=== PATIENT | male | born 1970 | race Caucasian/White ===

== ENCOUNTER 2018-06-29 09:33 | Emergency (ER) | payer SELFPAY ==
[2018-06-29 09:44] VITALS: BP 131/90
[2018-06-29 09:54] LABS: BILIRUBIN,URINE NEGATIVE (NEGATIVE); GLUCOSE, URINE (UA) NEGATIVE (NEGATIVE); KETONES,URINE (UA) TRACE mg/dL (NEGATIVE); LEUKOCYTE ESTERASE, URINE NEGATIVE (NEGATIVE); NITRITE,URINE NEGATIVE (NEGATIVE); OCCULT BLOOD,URINE LARGE (NEGATIVE); PH,URINE 5.5 PH (5.0-7.5); PROTEIN,URINE NEGATIVE (NEGATIVE); UROBILINOGEN,URINE 0.2 (NORMAL) E.U./dL (NORMAL)
[2018-06-29 09:57] LABS: CLARITY,URINE CLEAR (CLEAR)
[2018-06-29 10:20] LABS: BACTERIA,URINE Few /HPF (None Seen); MUCUS,URINE Few Strands; RBC,URINE TNTC /HPF (0-5); SQUAMOUS EPITHELIAL CELL,UR NONE SEEN (<= Few)
--- NOTE | 2018-06-29 10:26 | ED Physician Documentation ---
History of Present Illness - Stated complaint Stated Complaint: ABD/SIDE PX - Chief complaint Chief Complaint: Abd Pain - Additonal information Additional information: hx from pt 48 male gradual onset L mid abd and flank pain while driving to work pain escalated and was very severe and he could not find a comfortable position no CP or SOA or diaphoresis no NV no hx same subsided spont after about an hr Review of Systems Constitutional: denies: Fever, Chills Cardiac: denies: Chest pain / pressure Respiratory: denies: Dyspnea GI: reports: Abdominal Pain : denies: Dysuria Musculoskeletal: reports: Back pain Endocrine: denies: Easy bruising / bleeding Immunocompromised: denies: Immunocompromised PD PAST MEDICAL HISTORY - Present Medications Home Medications: Ambulatory Orders Medication Instructions Recorded Confirmed Hydrocodone/Acetaminophen 1 each PO Q6H PRN #10 tablet 06/29/18 [Hydrocodon-Acetaminophen 5-325] Ibuprofen [Motrin] 400 mg PO Q6H PRN #30 tablet 06/29/18 Ondansetron Odt [Zofran] 4 mg TL Q6H PRN #10 tablet 06/29/18 Tamsulosin HCl [Flomax] 0.4 mg PO DAILY PRN #7 cap 06/29/18 - Allergies Allergies/Adverse Reactions: Allergies Allergy/AdvReac Type Severity Reaction Status Date / Time bee pollen Allergy Rash Verified 06/29/18 09:45 Penicillins Allergy Rash Verified 06/29/18 09:44 PD ED PE NORMAL - Vitals Vital signs reviewed: Yes - Neck Neck: Supple, no meningeal sign - Cardiac Cardiac: RRR - Respiratory Respiratory: No respiratory distress - Abdomen Abdomen: Soft, Other (no pulsatile mass). No: Non tender (mild LUQ TTP) - Back Back: No: No CVA TTP (mild L CVA TTP) - Derm Derm: Normal color - Extremities Extremities: No deformity, No tenderness to palpate, No edema - Neuro Neuro: Alert and oriented X 3 Results - Vitals Vitals: Vital Signs - 24 hr 06/29/18 09:41 Temperature 36.0 C L Heart Rate 61 Respiratory 14 Rate Blood Pressure 131/90 H O2 Saturation 97 Oxygen O2 Source Room air - Labs Labs: Laboratory Tests 06/29/18 09:48 Urine Color DARK YELLOW Urine Clarity CLEAR Urine pH 5.5 Ur Specific [place] >=1.030 H Urine Protein NEGATIVE Urine Glucose (UA) NEGATIVE Urine Ketones TRACE Urine Occult Blood LARGE H Urine Nitrite NEGATIVE Urine Bilirubin NEGATIVE Urine Urobilinogen 0.2 (NORMAL) Ur Leukocyte Esterase NEGATIVE Urine RBC TNTC H Urine WBC 0-3 Ur Squamous Epith Cells NONE SEEN Urine Bacteria Few Urine Mucus Few Strands Ur Microscopic Review INDICATED Urine Culture Comments NOT INDICATED - Rads (name of study) KUB Radiology: See rad report (no stones clearly identified) PD MEDICAL DECISION MAKING - ED course ED course: pt has no insurnace and is hoping to minimize expensive work up if possible so start with just UA and single view KUB Departure - Departure Disposition: 01 Home, Self Care Clinical Impression: Renal colic on left side Condition: Good Instructions: ED Stone Renal W Colic Prescriptions: Hydrocodone/Acetaminophen [Hydrocodon-Acetaminophen 5-325] 1 each PO Q6H PRN #10 tablet PRN Reason: Severe Pain Ibuprofen [Motrin] 400 mg PO Q6H PRN #30 tablet PRN Reason: mild to moderate pain Ondansetron Odt [Zofran] 4 mg TL Q6H PRN #10 tablet PRN Reason: Nausea / Vomiting Tamsulosin HCl [Flomax] 0.4 mg PO DAILY PRN #7 cap PRN Reason: kidney stone pain Comments: The urine shows a large amount of blood consistent with a kidney stone. Thankfully no infection. No large stones were seen on the xrays - small stones can be hard to see but as long as it is too small to see on xray it is small enough to pass on its own Recommend that you take motrin for mild to moderate pain and vicodin for severe pain only Zofran if needed for nausea and vomiting. And flomax to help relax the ureter and help the stone pass Forms: Activity restrictions Discharge Date/Time: 06/29/18 12:09
--- NOTE | 2018-06-29 10:49 | XRAY Report ---
Reason: L flank pain with hematuria, KUB for stone Procedure Date: 06/29/2018 Accession Number: [id number] / [id number] Procedure: XR - Abdomen 1 View X-Ray CPT Code: 37775 FULL RESULT: EXAM: ABDOMEN RADIOGRAPHY EXAM DATE: 06/29/2018 10:27 AM. CLINICAL HISTORY: Left flank pain with hematuria, KUB for stone. COMPARISON: None. TECHNIQUE: 1 view. FINDINGS: Bowel Gas Pattern: Within normal limits. No dilated loops. Other: Calcific densities projecting over the pelvis have an appearance consistent with phleboliths. IMPRESSION: No renal calculi are detected. RADIA
== END 2018-06-29 12:09 | disposition home or self-care (01) ==
LOC: ED 09:33
DX: N23 Unspecified renal colic (principal)
CPT/HCPCS: 74018; 81001; 81003; 87086; 99283

== ENCOUNTER 2022-11-04 09:43 | Day surgery (SDC) | payer BC ==
[2022-11-04] MEDS: LACTATED RINGERS 1,000 ML IV ONE (10:13)
--- NOTE | 2022-11-04 10:24 | ANESTHESIA ---
Pre-Anesthesia VS, & Labs - Diagnosis screening - Procedure colonoscopy Vital Signs: Temp Pulse Resp BP Pulse Ox O2 Flow Rate 36 C L 60 14 107/77 97 11/04/22 09:55 11/04/22 09:55 11/04/22 09:55 11/04/22 09:55 11/04/22 09:55 Height: 6 ft Weight (kg): 85.7 kg Body Mass Index: 25.6 BMI Classification: Overweight - NPO Other (prep as directed) Home Medications and Allergies Home Medications: Ambulatory Orders No Known Home Medications 11/03/22 No Known Home Medications 11/03/22 Allergies/Adverse Reactions: Allergies Allergy/AdvReac Type Severity Reaction Status Date / Time bee pollen Allergy Rash Verified 06/29/18 09:45 Penicillins Allergy Rash Verified 06/29/18 09:44 shellfish derived Allergy Anaphylaxis Verified 11/03/22 13:25 Anes History & Medical History - Anesthetic History Anesthesia Complications: reports: No previous complications - Medical History Cardiovascular: reports: None Pulmonary: reports: None Gastrointestinal: reports: None Urinary: reports: None Musculoskeletal: reports: None Endocrine/Autoimmune: reports: None Skin: reports: None Smoking Status: Never smoker - Surgical History Orthopedic: reports: Other Exam General: Alert, Oriented x3 Dental: WNL, Other (chronic dental pain) Mouth Opening: Greater than 4 Fingerbreadths Neck Mobility: Normal Mallampati classification: II Respiratory: Lungs clear Cardiovascular: Regular rate, Normal S1, Normal S2 Plan Anesthesia Type: Total IV Consent for Procedure(s) Verified and Reviewed: Yes Code Status: Attempt Resuscitation ASA classification: 2-Mild systemic disease Is this case an emergency?: No
[2022-11-04] MEDS ORDERED: PROPOFOL 500 MG/50 ML 500 MG/50 ML VIAL ONE (10:26)
[2022-11-04] MEDS: LACTATED RINGERS 700 ML IV ONE (11:35)
--- NOTE | 2022-11-04 11:44 | ANESTHESIA POST OP EVALUATION ---
Anesthesia Post Eval - Post Anesthesia Eval Vitals: Last Vital Signs Temp 36.0 C L 11/04/22 11:35 Pulse 64 11/04/22 11:35 Resp 18 11/04/22 11:35 BP 88/46 L 11/04/22 11:35 Pulse Ox 98 11/04/22 11:35 O2 Flow Rate CV Function Including HR & BP: Stable Pain Control: Satisfactory Nausea & Vomiting: Negative Mental Status: Baseline Respiratory Status: Airway Patent Hydration Status: Satisfactory Anesthesia Complications: None
[2022-11-04 12:06] VITALS: BP 103/62
== END 2022-11-04 09:44 | disposition home or self-care (01) ==
LOC: SDS 09:43
PROVIDERS: ATTEND Surgery
DX: Z12.11 Encounter for screening for malignant neoplasm of colon (principal); K64.1 Second degree hemorrhoids; Z87.891 Personal history of nicotine dependence
CPT/HCPCS: 45378; J7120

== ENCOUNTER 2022-11-30 10:00 | Outpatient (CLI) | payer BC ==
--- NOTE | 2022-11-30 16:52 | XRAY Report ---
PROCEDURE: Knee 4 View RT INDICATIONS: RIGHT KNEE PAIN TECHNIQUE: 4 views of the right knee(s) were acquired. COMPARISON: None. FINDINGS: Bones: No fractures or dislocations. No suspicious bony lesions. Mild tricompartmental periarticu lar osteophyte formation. Soft tissues: No knee joint effusion. No suspicious soft tissue calcifications or masses. IMPRESSION: Osteoarthritis. No acute fracture. No osseous lesion. If symptoms and/or clinical suspicion for patho logy continue, further assessment with repeat plain films, or advanced imaging (e.g., CT, MRI, or bon e scan) is recommended for further assessment. Reviewed by: Debra Rodríguez MD on 11/30/2022 4:51 PM PDT Approved by: Debra Rodríguez MD on 11/30/2022 4:51 PM PDT Station ID: [id number]
== END 2022-11-30 23:59 | disposition home or self-care (01) ==
LOC: DI.WOS 10:00
PROVIDERS: ATTEND Physician Assistant Surgical
DX: M17.11 Unilateral primary osteoarthritis, right knee (principal)

== ENCOUNTER 2022-12-10 09:58 | Outpatient (CLI) | payer BC ==
--- NOTE | 2022-12-10 16:49 | MRI Report ---
PROCEDURE: KNEE WO - RT INDICATIONS: TEAR MEDIAL MENISCUS TECHNIQUE: Noncontrast sagittal PD fast spin echo and T2 fast spin echo with fat saturation, sagittal 3-D gradie nt sequence with fat saturation; coronal T1 spin echo and PD fast spin echo with fat saturation, and axial PD fast spin echo with fat saturation through the knee. COMPARISON: Plain films dated 11/30/2022. FINDINGS: Image quality: Excellent. Menisci: Moderate ill-defined T2 signal elevation at the posterior meniscal capsular junction of the posterior horn medial meniscus. Linear horizontal high T2 signal intensity traverses the middle and i nner thirds of the posterior horn medial meniscus, demonstrating inferior articular surface extension . Lateral meniscus is intact. Cruciate ligaments: The anterior and posterior cruciate ligaments appear intact. Medial structures: The medial collateral ligament appears intact. Visualized portions of the pes ans erinus tendons appear normal. No abnormal bursal fluid. There is mild T2 signal elevation within an d surrounding the tibial insertion of the semimembranosus. Lateral structures: The lateral collateral ligament, long and short heads of the biceps femoris tend on appear intact. The popliteus tendon appears normally. Iliotibial band appears normal. Anterior structures: The quadriceps and patellar tendons appear intact. Patellar alignment is alfred l. No femoral trochlear dysplasia or ventral trochlear prominence. No edema in the infrapatellar fa t pad. Bones and cartilage: No bone marrow contusions or fractures. Moderate ill-defined T2 signal elevatio n within the posterior weightbearing aspect of the medial tibial plateau. Mild tricompartmental peria reolar articular osteophyte formation. Moderate articular cartilage loss diffusely overlies the weigh tbearing aspects of the medial femoral condyle and medial tibial plateau. Moderate articular cartilag e loss overlies the medial patellar facet and patellar apex. Articular cartilage fibrillation overlie s the lateral patellar apex. Joint space: There is a small knee joint effusion and a trace Sanchez's cyst. Normal appearing synovi al plicae are incidentally noted. IMPRESSION: 1. Tricompartmental osteoarthritis with associated articular cartilage loss. 2. Meniscocapsular junction injury involving the medial meniscus with associated medial meniscal tear ing. 3. Knee joint effusion and Sanchez's cyst. 4. Insertional tendinitis of the semimembranosus. Reviewed by: Debra Rodríguez MD on 12/10/2022 4:47 PM PDT Approved by: Debra Rodríguez MD on 12/10/2022 4:47 PM PDT Station ID: [id number]
== END 2022-12-10 09:59 | disposition home or self-care (01) ==
LOC: DI 09:58
PROVIDERS: ATTEND Physician Assistant Surgical
DX: S83.249A Other tear of medial meniscus, current injury, unspecified knee, initial encounter (principal); M17.11 Unilateral primary osteoarthritis, right knee; S83.241A Other tear of medial meniscus, current injury, right knee, initial encounter; M76.891 Other specified enthesopathies of right lower limb, excluding foot